=== PATIENT | male | born 1975 | race Caucasian/White ===

== ENCOUNTER → 2017-02-08 | Outpatient (CLI) | payer BC | LOC: EDSTATUS 09:17 → FIMAGING 11:39 | PROVIDERS: ATTEND Orthopaedic Surgery Orthopaedic Surgery of the Spine | DX: M51.36 Other intervertebral disc degeneration, lumbar region (principal) ==

== ENCOUNTER → 2017-05-25 | Outpatient (CLI) | payer BC | LOC: FIMAGING 11:29 | PROVIDERS: ATTEND Physical Medicine & Rehabilitation Neuromuscular Medicine | DX: Z09 Encounter for follow-up examination after completed treatment for conditions other than malignant neoplasm (principal); M54.5 Low back pain; Z98.1 Arthrodesis status ==

== ENCOUNTER → 2017-08-04 | Outpatient (CLI) | payer BC | LOC: FIMAGING 13:26 → EDSTATUS 13:28 | PROVIDERS: ATTEND Physical Medicine & Rehabilitation Neuromuscular Medicine | DX: Z09 Encounter for follow-up examination after completed treatment for conditions other than malignant neoplasm (principal); Z98.1 Arthrodesis status ==

== ENCOUNTER → 2017-11-10 | Outpatient (CLI) | payer BC | LOC: FIMAGING 12:24 | PROVIDERS: ATTEND Physical Medicine & Rehabilitation Neuromuscular Medicine | DX: Z47.89 Encounter for other orthopedic aftercare (principal); Z98.1 Arthrodesis status ==

== ENCOUNTER → 2018-03-16 | Outpatient (CLI) | payer BC | LOC: FIMAGING 14:11 | PROVIDERS: ATTEND Physical Medicine & Rehabilitation Neuromuscular Medicine | DX: Z98.1 Arthrodesis status (principal) ==